=== PATIENT | male | born 1960 | race Caucasian/White ===

== ENCOUNTER 2016-07-16 11:19 | Emergency (ER) | payer OTHER ==
[~2016-07-16] VITALS: Ht 188 cm; Wt 101.2 kg
[2016-07-16] MEDS ORDERED: NKM (11:48)
[2016-07-16] MEDS ORDERED: Bacitracin Oint UD TOPIC ONE (12:53)
[2016-07-16] MEDS ORDERED: ACETAMINOPHEN-1 EAC1 ORAL (12:56)
[2016-07-16] MEDS ORDERED: KEFLEX500 MG ORAL (12:56)
[2016-07-16] MEDS ORDERED: IBUPROFEN600 MG ORAL (12:56)
[2016-07-16] MEDS ORDERED: Tylenol #3 tab (300mg/30mg) ORAL ONE (13:30)
[2016-07-16 14:01] VITALS: BP 124/77
--- NOTE | 2016-07-17 09:38 | Emergency Room Report ---
History of Present Illness General Chief Complaint: Laceration Source: Patient Present Illness HPI Patient has a laceration of the left index finger Patient was at work using a tablesaw when this injury occurred Pain is 8/10 localized to the finger Patient denies any injury to the wrist denies any elbow pain Denies any loss of consciousness Patient is up-to-date with immunizations including tetanus Simple pressure dressing is applied and patient presents for further eval Allergies: Coded Allergies: No Known Allergies (Unverified , 07/16/16) Patient History Past Medical History: see triage record Pertinent Family History: none Reviewed Nursing Documentation: PMH: Agreed, PSxH: Agreed Nursing Documentation-PMH Past Medical History: No Stated History Review of Systems All Other Systems: negative except mentioned in HPI Physical Exam Vital Signs Date Time Temp Pulse Resp B/P Pulse Ox O2 Delivery O2 Flow Rate FiO2 07/16/16 11:43 97.3 56 16 124/77 99 Room Air Sp02 EP Interpretation: reviewed, normal General Appearance: well appearing, no apparent distress Head: normocephalic, atraumatic Eyes: bilateral eye EOMI, bilateral eye PERRL ENT: normal pharynx Neck: supple, thyroid normal Respiratory: lungs clear Cardiovascular #1: regular rate, rhythm Gastrointestinal: soft Musculoskeletal: other - Approximately 3 center laceration left dorsal index finger, going to the tip of the finger involving the radial aspect of the nailbed as well. Patient is able to flex the finger and extend with resistance Neurologic: alert, oriented x3, netsuite consultant III-XII nml as tested, motor strength/tone normal Skin: other - As above Lymphatic: no adenopathy Procedures Splinting Splinting : Consent: Verbal Location: left index finger Pre-Made Type: metal Splint: finger splint Pre-Proc Neuro Vasc Exam: normal Post-Proc Neuro Vasc Exam: normal Patient Tolerated: Well Complications: None Laceration/Wound Repair Laceration/Wound Repair : Consent: Written Patient Tolerated: Well Complications: None Progress The area is cleansed and prepped appropriately Digital block is required therefore 3 mL 1% lidocaine was injected approximately , in a standing fashion for distal blockage this did provide good anesthesia After this high pressure saline wash was performed The laceration is approximately 3 cm, jagged, there is an associated avulsion the tip of the finger involving partial aspect of the nail With a sterile precautions Patient had 8, 4.0 monofilament sutures applied in interrupted fashion With appropriate approximation Distal fingertip also had suture applied however there is an area of avulsion that is not able to be fully closed Further investigation of the finger does not reveal any obvious tendon involvement, the laceration was fairly deep however also with further evaluation patient has continued full flexion and extension at the finger Area was dressed and prepped and patient tolerated the procedure well , , Medical Decision Making Diagnostic Impression: Primary Impression: Laceration Additional Impression: complex laceration of finger ER Course Patient has a complex finger laceration repaired as noted above Was provided antibiotics here given the appearance Patient will require close hand specialty followup This was a workers comp and will initially go to the clinic However a specialist was provided in case there is any problem following up Consideration for possible infectious pathology is high given the appearance and the patient has been placed on antibiotics Other X-Ray Diagnostic Results Other X-Ray Diagnostic Results : EP Interpretation: Yes Findings: no fractures, no dislocation, no soft tissue swelling Number of Views: 2 - left finger index Last Vital Signs Date Time Temp Pulse Resp B/P Pulse Ox O2 Delivery O2 Flow Rate FiO2 07/16/16 14:04 97.7 07/16/16 14:01 53 16 124/77 96 Room Air Status: improved Disposition: HOME, SELF-CARE Condition: Improved Scripts Acetaminophen With Codeine (T#3) (TYLENOL #3 TAB*) Y Tab 1 TAB ORAL Q8H Y for For Pain, #15 TAB Prov: ELIZABETH FALLON.Jaden. 07/16/16 Ibuprofen* (MOTRIN*) 600 Mg Tablet 600 MG ORAL Q8H Y for For Pain, #30 TAB 0 Refills Prov: ELIZABETH FALLON.O. 07/16/16 Cephalexin* (KEFLEX*) 500 Mg Capsule 500 MG ORAL Q6H, #28 CAP 0 Refills Prov: ELIZABETH FALLON.O. 07/16/16 Referrals: NOT CHOSEN IPA/MD,REFERRING (PCP) Patient Instructions: Laceration Care, Adult Additional Instructions: Your hand laceration is complex and will require hand specialty referral please contact your workers comp clinic for further referral If this is not possible a hand specialist has been provided for referral for you , ELIZABETH FALLON D.O. July 17, 2016 09:38
--- NOTE | 2016-07-17 11:58 | Diagnostic Imaging Report ---
Indication: Pain Comparison: None Findings: 3 views of the second left digit demonstrate bandages and soft tissue swelling. There is no obvious radiopaque foreign body, fracture or malalignment. Impression: Soft tissue injury
== END 2016-07-16 14:04 | disposition home or self-care (01) ==
LOC: EMR 13:30
DX: S61.211A Laceration without foreign body of left index finger without damage to nail, initial encounter (principal)
CPT/HCPCS: 29280